=== PATIENT | male | born 1975 | race Hispanic/Latino ===

== ENCOUNTER 2018-12-03 13:28 | Emergency (ER) | payer BC ==
[~2018-12-03] VITALS: Ht 175.3 cm; Wt 95.3 kg
--- NOTE | 2018-12-03 15:10 | Diagnostic Imaging Report ---
SHOULDER 2+VW RT - [facility] - 3 views HISTORY: Pain. Pain with abduction x1 day. COMPARISON: None available. FINDINGS: Bones: No acute displaced fracture. Osseous alignment is within normal limits. Joints: The joint spaces are well-maintained. Soft tissues: The soft tissues appear unremarkable. IMPRESSION: No acute radiographic abnormality. Signed by: Dr. Jethro Engel M.D. on 12/03/2018 3:07 PM
== END 2018-12-03 15:08 | disposition home or self-care (01) ==
LOC: FSED 13:28
DX: M75.51 Bursitis of right shoulder (principal); M75.01 Adhesive capsulitis of right shoulder; Z87.891 Personal history of nicotine dependence
CPT/HCPCS: 99283